=== PATIENT | female | born 1970 | race African-American/Black ===

== ENCOUNTER 2018-08-03 16:44 | Emergency (ER) | payer MEDICAID ==
[~2018-08-03] VITALS: Ht 165.1 cm; Wt 120.0 kg
[~2018-08-03 16:44] MED LIST: SULF1TAB48 MT
[2018-08-03 18:21] LABS: BASOPHILS % 0.6 % (0.0-2.0); EOSINOPHILS % 0.8 % (0.0-5.0); HEMATOCRIT. 38.1 % (36.0-48.0); HEMOGLOBIN. 12.8 g/dL (12.0-16.0); LYMPHOCYTES % 16.5 % (20.0-50.0); MEAN CORPUSCULAR HEMOGLOBIN 28.9 pg (28.0-32.0); MEAN PLATELET VOLUME 8.2 fl (7.4-10.4); MONOCYTES % 7.2 % (2.0-8.0); NEUTROPHILS % 74.9 % (40.0-76.0); PLATELET 360 x1000/uL (130-400); RED BLOOD CELL COUNT 4.43 mill/uL (4.2-5.4); RED CELL DISTRIBUTION WIDTH 14.4 % (11.6-14.6)
[2018-08-03 18:23] LABS: CHLORIDE 105 mEq/L (98-107)
[2018-08-03] MEDS ORDERED: MORPHINE SULFATE 4 MG/ML CPJ (NOT FOR IM USE) IV ONE (19:30)
[2018-08-03 21:36] VITALS: BP 129/95
== END 2018-08-03 21:37 | disposition home or self-care (01) ==
LOC: ER 16:44
DX: M54.89 Other dorsalgia (principal); R51 Headache; M54.2 Cervicalgia; F41.9 Anxiety disorder, unspecified; Z90.49 Acquired absence of other specified parts of digestive tract; Z79.899 Other long term (current) drug therapy
CPT/HCPCS: 36415; 70450; 71045; 80053; 85025; 96374; 99284; J2270; Z7610

== ENCOUNTER 2020-04-23 18:49 | Emergency (ER) | payer MEDICAID ==
[~2020-04-23] VITALS: Ht 165.1 cm; Wt 113.0 kg
[2020-04-23] MEDS ORDERED: ACETAMINOPHEN 325MG TABLET PO ONE (19:15)
[2020-04-23] MEDS ORDERED: AMOX-424 MT (19:49)
[2020-04-23] MEDS ORDERED: AMOXICILLIN/POTASSIUM CLAVULANATE 875/125MG TAB PO ONE (20:00)
[2020-04-23 20:38] VITALS: BP 140/78
== END 2020-04-23 21:00 | disposition home or self-care (01) ==
LOC: ER 18:49
DX: H66.91 Otitis media, unspecified, right ear (principal); R03.0 Elevated blood-pressure reading, without diagnosis of hypertension; E66.9 Obesity, unspecified; Z68.41 Body mass index [BMI] 40.0-44.9, adult
CPT/HCPCS: 99283

== ENCOUNTER 2021-02-22 23:18 | Emergency (ER) | payer MEDICAID ==
[~2021-02-22] VITALS: Ht 165.1 cm; Wt 123.0 kg
[~2021-02-22 23:18] MED LIST changes: +AMOX-424 MT
[2021-02-23] MEDS ORDERED: KETOROLAC 60MG/2ML VIAL IM ONE (01:30)
[2021-02-23 01:57] LABS: BASOPHILS % 0.9 % (0.0-2.0); HEMATOCRIT. 42.8 % (36.0-48.0); HEMOGLOBIN. 14.1 g/dL (12.0-16.0); LYMPHOCYTES % 19.7 % (20.0-50.0); MEAN CORPUSCULAR HEMOGLOBIN 29.3 pg (28.0-32.0); MEAN PLATELET VOLUME 8.5 fl (7.4-10.4); MONOCYTES % 7.5 % (2.0-8.0); NEUTROPHILS % 70.9 % (40.0-76.0); PLATELET 302 x1000/uL (130-400); RED BLOOD CELL COUNT 4.81 mill/uL (4.2-5.4); RED CELL DISTRIBUTION WIDTH 13.9 % (11.6-14.6)
[2021-02-23 02:00] LABS: CHLORIDE 107 mEq/L (98-107)
[2021-02-23 03:20] VITALS: BP 130/70
== END 2021-02-23 03:23 | disposition home or self-care (01) ==
LOC: ER 23:18
DX: I77.6 Arteritis, unspecified (principal); Z90.49 Acquired absence of other specified parts of digestive tract
CPT/HCPCS: 36415; 73610; 80048; 85025; 96372; 99284; J1885

== ENCOUNTER 2021-03-12 03:16 | Emergency (ER) | payer MEDICAID ==
[~2021-03-12] VITALS: Ht 162.6 cm; Wt 77.0 kg
[2021-03-12 03:18] VITALS: BP 163/82
[2021-03-12] MEDS ORDERED: METHYLPREDNISOLONE SOD SUCC 125 MG/2 ML VIAL IM SCH (04:30)
[2021-03-12] MEDS ORDERED: KETOROLAC 30MG/ML VIAL IM ONE (04:30)
[2021-03-12 04:39] LABS: BASOPHILS % 0.4 % (0.0-2.0); EOSINOPHILS % 2.1 % (0.0-5.0); HEMATOCRIT. 37.4 % (36.0-48.0); HEMOGLOBIN. 12.6 g/dL (12.0-16.0); LYMPHOCYTES % 19.5 % (20.0-50.0); MEAN CORPUSCULAR HEMOGLOBIN 29.2 pg (28.0-32.0); MEAN CORPUSCULAR VOLUME 86.8 fL (81.0-99.0); MEAN PLATELET VOLUME 7.7 fl (7.4-10.4); MONOCYTES % 7.3 % (2.0-8.0); NEUTROPHILS % 70.7 % (40.0-76.0); PLATELET 321 x1000/uL (130-400); RED BLOOD CELL COUNT 4.31 mill/uL (4.2-5.4); RED CELL DISTRIBUTION WIDTH 13.9 % (11.6-14.6)
[2021-03-12 04:51] LABS: CHLORIDE 108 mEq/L (98-107)
[2021-03-12] MEDS ORDERED: IBUP-2029 MT (05:09)
[2021-03-12] MEDS ORDERED: CEPH500T MT (05:09)
[2021-03-12] MEDS ORDERED: P20 PO (05:09)
== END 2021-03-12 06:18 | disposition home or self-care (01) ==
LOC: ER 03:16
DX: R21 Rash and other nonspecific skin eruption (principal); Z90.49 Acquired absence of other specified parts of digestive tract
CPT/HCPCS: 36415; 80053; 85025; 96372; 99284; J1885; J2930

== ENCOUNTER 2022-02-09 15:48 | Emergency (ER) | payer MEDICAID ==
[~2022-02-09] VITALS: Ht 167.6 cm; Wt 129.5 kg
[~2022-02-09 15:48] MED LIST changes: +CEPH500T MT; +IBUP-2029 MT; +P20 PO
[2022-02-09 16:05] VITALS: BP 172/144
[2022-02-09] MEDS ORDERED: ALBU6.7H3 INH (20:59)
[2022-02-09] MEDS ORDERED: BENZ100C86 MT (20:59)
== END 2022-02-09 21:19 | disposition home or self-care (01) ==
LOC: ER 15:48
DX: R05.9 Cough, unspecified (principal); J06.9 Acute upper respiratory infection, unspecified; F41.9 Anxiety disorder, unspecified; F17.200 Nicotine dependence, unspecified, uncomplicated; Z79.899 Other long term (current) drug therapy; Z90.710 Acquired absence of both cervix and uterus; Z90.49 Acquired absence of other specified parts of digestive tract
CPT/HCPCS: 71045; 93005; 99283

== ENCOUNTER 2025-02-07 12:08 | Inpatient (IN) | payer OTHER ==
[~2025-02-07] VITALS: Ht 167.6 cm; Wt 134.7 kg
[~2025-02-07 12:08] MED LIST changes: +ALBU18HF2 IH; +AMLO10TA80 MT; -AMOX-424 MT; +BUDE6.9H IH; -CEPH500T MT; +FLUT1BLS3 INH; +HYDR100T11 MT; -IBUP-2029 MT; +INSU100I28 SQ; +LIP40 MT; +LISI10TA26 MT; +METF-817 MT; +METO-539 MT; +OMEP20CA14 PO; -P20 PO; -SULF1TAB48 MT
[2025-02-07] MEDS: METHYLPREDNISOLONE SOD SUCC 125MG/2ML (ACT-O-VIAL) IV ONE (12:43)
[2025-02-07 12:47] LABS: BASOPHILS % 0.5 % (0.0-2.0); EOSINOPHILS % 1.8 % (0.0-5.0); HEMATOCRIT. 39.6 % (36.0-48.0); HEMOGLOBIN. 12.8 g/dL (12.0-16.0); LYMPHOCYTES % 22.8 % (20.0-50.0); MEAN PLATELET VOLUME 8.5 fl (7.4-10.4); MONOCYTES % 7.1 % (2.0-8.0); NEUTROPHILS % 67.8 % (40.0-76.0); PLATELET 261 x1000/uL (130-400); RED BLOOD CELL COUNT 4.56 mill/uL (4.2-5.4); RED CELL DISTRIBUTION WIDTH 14.0 % (11.6-14.6)
[2025-02-07 12:55] LABS: CREATININE 0.9 mg/dL (0.6-1.0)
[2025-02-07 12:56] LABS: UREA NITROGEN BLOOD 12 mg/dL (9-23)
[2025-02-07 12:57] LABS: TROPONIN I HIGH SENSITIVITY 23 ng/L (3.0-34)
[2025-02-07 13:10] VITALS: PULSE 96; RESP 22; O2SAT 95
[2025-02-07] MEDS: IPRATROPIUM BROMIDE (0.02%) 0.5MG/2.5ML NEB HHN ONE (13:10)
[2025-02-07] MEDS: ALBUTEROL (0.083%) 2.5MG/3ML NEB HHN ONE (13:10)
[2025-02-07 15:30] VITALS: BP 154/127; PULSE 108; RESP 20; TEMP 36.8072
[2025-02-07 15:30] LABS: TROPONIN I HIGH SENSITIVITY 17 ng/L (3.0-34)
[2025-02-07 16:00] VITALS: BP 154/107; PULSE 108; RESP 20; TEMP 36.8; O2SAT 94
[2025-02-07] MEDS ORDERED: ONDANSETRON HCL 4MG/2ML INJ IV PRN (18:00)
[2025-02-07] MEDS ORDERED: DEXTROSE 50% WATER 50ML SYRINGE IV PRN (18:00)
[2025-02-07 20:00] VITALS: BP_SYST 137; BP_SYST 138; BP_DIAS 68; BP_DIAS 96; PULSE 122; RESP 18; TEMP 36.6; O2SAT 97
[2025-02-07] MEDS ORDERED: NALOXONE HCL 0.4MG/ML VIAL IV PRN (20:45)
[2025-02-07] MEDS: HYDROCODONE/ACETAMINOPHEN 10/325MG TABLET PO PRN (20:53)
[2025-02-07] MEDS: INSULIN LISPRO 100 UNITS/ML SUBCUT SCH (20:53)
[2025-02-07] MEDS: BLOOD SUGAR DIAGNOSTIC STRIP TEST SCH (20:54)
[2025-02-07 21:07] VITALS: PULSE 88; RESP 20
[2025-02-07] MEDS: IPRATROPIUM/ALBUTEROL 0.5-3(2.5)MG/3ML NEB HHN SCH (21:07)
[2025-02-08] VITALS (11 sets, daily range): BP systolic 100–166; BP diastolic 56–91; PULSE 68–122; RESP 18–22; TEMP 36.5–37.2; O2SAT 90–97
[2025-02-08] MEDS: ACETAMINOPHEN 325MG TABLET PO PRN (02:42)
[2025-02-08 07:25] LABS: CREATININE 0.8 mg/dL (0.6-1.0)
[2025-02-08 07:27] LABS: UREA NITROGEN BLOOD 14 mg/dL (9-23)
[2025-02-08 07:30] LABS: BASOPHILS % 0.1 % (0.0-2.0); EOSINOPHILS % 0.0 % (0.0-5.0); HEMATOCRIT. 37.7 % (36.0-48.0); HEMOGLOBIN. 12.2 g/dL (12.0-16.0); LYMPHOCYTES % 13.0 % (20.0-50.0); MEAN PLATELET VOLUME 9.0 fl (7.4-10.4); MONOCYTES % 7.4 % (2.0-8.0); NEUTROPHILS % 79.5 % (40.0-76.0); PLATELET 268 x1000/uL (130-400); RED BLOOD CELL COUNT 4.33 mill/uL (4.2-5.4); RED CELL DISTRIBUTION WIDTH 13.9 % (11.6-14.6)
[2025-02-08] MEDS: PANTOPRAZOLE SODIUM 40 MG/VIAL IV SCH (10:16)
[2025-02-08] MEDS: PREDNISONE 20MG TABLET PO SCH (11:34)
[2025-02-08] MEDS: INSULIN GLARGINE 100 UNITS/ML SUBCUT SCH ×2 (11:40→21:13)
[2025-02-08] MEDS: BLOOD SUGAR DIAGNOSTIC STRIP TEST SCH (12:20)
[2025-02-08] MEDS: INSULIN LISPRO 100 UNITS/ML SUBCUT SCH (12:44)
[2025-02-08] MEDS: ACETYLCYSTEINE 200MG/ML 20% VIAL 4ML INH SCH (16:17)
[2025-02-09] VITALS (9 sets, daily range): BP systolic 116–148; BP diastolic 76–95; PULSE 78–111; RESP 16–20; TEMP 36.3–36.5; O2SAT 95–100
[2025-02-09 13:22] LABS: BG BASE EXCESS 3.1 mmol/L (-2.0-3.0); BG CARBOXYHEMOGLOBIN 1.2 % (0.5-1.5); BG DEOXYHEMOGLOBIN 4.7 % (0.0-5.0); BG FRACTION INSPIRED OXYGEN 21; BG HCO3 ACT 29.0 mmol/L (21.0-28.0); BG METHEMOGLOBIN 0.0 % (0.5-1.5); BG OXYGEN SATURATION 95.2 % (94.0-98.0); BG OXYHEMOGLOBIN 94.1 % (94.0-98.0); BG PCO2 49.4 mmHg (32.0-45.0); BG PH 7.386 (7.350-7.450); BG PO2 74.3 mmHg (83.0-108.0); BG SAMPLE SITE RIGHT RADIAL; BG TOTAL HEMOGLOBIN 13.3 g/dL (12.0-16.0); BG VENT MODE ROOM AIR
[2025-02-09] MEDS ORDERED: ALBU18HF2 IH (16:58)
[2025-02-09] MEDS ORDERED: P20 MT (16:58)
== END 2025-02-09 18:27 | disposition home or self-care (01) | DRG 140 ==
LOC: ER 12:08 → 5WST 14:12 → EDBEDREQTM 14:16 → EDBEDREQ 14:16
PROVIDERS: ADMIT Internal Medicine; ATTEND Internal Medicine
DX: J44.1 Chronic obstructive pulmonary disease with (acute) exacerbation (principal); J96.01 Acute respiratory failure with hypoxia; E11.65 Type 2 diabetes mellitus with hyperglycemia; I10 Essential (primary) hypertension; G43.909 Migraine, unspecified, not intractable, without status migrainosus; J98.11 Atelectasis; Z79.899 Other long term (current) drug therapy; Z79.4 Long term (current) use of insulin; Z79.84 Long term (current) use of oral hypoglycemic drugs
CPT/HCPCS: 36415; 36600; 71045; 80048; 82375; 82805; 82962; 83036; 83735; 83880; 84484; 85025; 85379; 93005; 93970; 94070; 94640; 96375; 99285; J1815; J2470; J2919; J7512; J7608

== ENCOUNTER 2025-02-14 04:43 | Inpatient (IN) | payer OTHER ==
[~2025-02-14] VITALS: Ht 167.6 cm; Wt 133.8 kg
[~2025-02-14 04:43] MED LIST changes: +P20 MT
[2025-02-14] MEDS: METHYLPREDNISOLONE SOD SUCC 125MG/2ML (ACT-O-VIAL) IV NR (05:30)
[2025-02-14] MEDS: ALBUTEROL (0.083%) 2.5MG/3ML NEB HHN NR (05:49)
[2025-02-14] MEDS: IPRATROPIUM BROMIDE (0.02%) 0.5MG/2.5ML NEB HHN NR (05:49)
[2025-02-14 05:50] LABS: CREATININE 1.0 mg/dL (0.6-1.0); TROPONIN I HIGH SENSITIVITY 17 ng/L (3.0-34); UREA NITROGEN BLOOD 15 mg/dL (9-23)
[2025-02-14 05:51] LABS: PROTEIN TOTAL 6.9 g/dL (6.0-8.3)
[2025-02-14 05:52] VITALS: PULSE 97; RESP 28; O2SAT 99
[2025-02-14 05:52] LABS: ASPARTATE AMINOTRANSFERASE 23 IU/L (<34); BILIRUBIN DIRECT < 0.1 mg/dL (<=3.0); BILIRUBIN TOTAL 0.2 mg/dL (0.1-1.0); ETHANOL BLOOD < 10 mg/dL (<10)
[2025-02-14 06:25] LABS: BASOPHILS % 0.4 % (0.0-2.0); EOSINOPHILS % 1.9 % (0.0-5.0); HEMATOCRIT. 38.6 % (36.0-48.0); HEMOGLOBIN. 12.6 g/dL (12.0-16.0); LYMPHOCYTES % 19.9 % (20.0-50.0); MEAN PLATELET VOLUME 9.3 fl (7.4-10.4); MONOCYTES % 7.4 % (2.0-8.0); NEUTROPHILS % 70.4 % (40.0-76.0); PLATELET 245 x1000/uL (130-400); RED BLOOD CELL COUNT 4.44 mill/uL (4.2-5.4); RED CELL DISTRIBUTION WIDTH 14.2 % (11.6-14.6)
[2025-02-14 06:33] LABS: INR 0.9
[2025-02-14 07:20] LABS: INFLUENZA TYPE A Presumptive Negative (Pres. Neg.)
[2025-02-14 07:21] LABS: INFLUENZA TYPE B Presumptive Negative (Pres. Neg.); RESPIRATORY SYNCYTIAL VIRUS Not Detected (Not Detectd)
[2025-02-14] MEDS ORDERED: DEXTROSE 50% WATER 50ML SYRINGE IV PRN (15:00)
[2025-02-14] MEDS ORDERED: ONDANSETRON HCL 4MG/2ML INJ IV PRN (15:00)
[2025-02-14] MEDS: AMLODIPINE 10MG TABLET PO SCH (16:00)
[2025-02-14 16:48] VITALS: BP 142/80; PULSE 85; RESP 20; TEMP 36.4736
[2025-02-14] MEDS: BLOOD SUGAR DIAGNOSTIC STRIP TEST SCH (17:10)
[2025-02-14] MEDS: INSULIN LISPRO 100 UNITS/ML SUBCUT SCH (17:40)
[2025-02-14 20:00] VITALS: BP 132/89; PULSE 109; RESP 18; TEMP 36.9; O2SAT 96
[2025-02-14] MEDS: ACETAMINOPHEN 325MG TABLET PO PRN (23:00)
[2025-02-15] VITALS (10 sets, daily range): BP systolic 135–150; BP diastolic 92–100; PULSE 74–111; RESP 18–24; TEMP 36.6–36.9; O2SAT 96–100
[2025-02-15] MEDS: IPRATROPIUM/ALBUTEROL 0.5-3(2.5)MG/3ML NEB HHN SCH (01:12)
[2025-02-15] MEDS: GUAIFENESIN-DM 200MG-20MG/10ML UDC PO PRN (04:22)
[2025-02-15] MEDS: INSULIN GLARGINE 100 UNITS/ML SUBCUT SCH ×2 (13:02→21:35)
[2025-02-15] MEDS: KETOROLAC 30MG/ML VIAL IV PRN (13:05)
[2025-02-16] VITALS (8 sets, daily range): BP systolic 122–149; BP diastolic 80–103; PULSE 86–114; RESP 18–20; TEMP 36.1–36.7; O2SAT 95–100
[2025-02-17] VITALS (9 sets, daily range): BP systolic 124–162; BP diastolic 91–111; PULSE 84–127; RESP 17–19; TEMP 36.1–36.7; O2SAT 95–98
[2025-02-17 08:37] LABS: BASOPHILS % 0.3 % (0.0-2.0); EOSINOPHILS % 2.0 % (0.0-5.0); HEMATOCRIT. 40.6 % (36.0-48.0); HEMOGLOBIN. 13.1 g/dL (12.0-16.0); LYMPHOCYTES % 26.0 % (20.0-50.0); MEAN PLATELET VOLUME 9.2 fl (7.4-10.4); MONOCYTES % 7.7 % (2.0-8.0); NEUTROPHILS % 64.0 % (40.0-76.0); PLATELET 254 x1000/uL (130-400); RED BLOOD CELL COUNT 4.70 mill/uL (4.2-5.4); RED CELL DISTRIBUTION WIDTH 14.0 % (11.6-14.6)
[2025-02-17 08:46] LABS: CREATININE 1.0 mg/dL (0.6-1.0); UREA NITROGEN BLOOD 12.0 mg/dL (9-23)
[2025-02-17 15:04] LABS: BG BASE EXCESS 3.4 mmol/L (-2.0-3.0); BG CARBOXYHEMOGLOBIN 0.8 % (0.5-1.5); BG DEOXYHEMOGLOBIN 5.5 % (0.0-5.0); BG FRACTION INSPIRED OXYGEN 21; BG HCO3 ACT 28.3 mmol/L (21.0-28.0); BG METHEMOGLOBIN 0.3 % (0.5-1.5); BG OXYGEN SATURATION 94.4 % (94.0-98.0); BG OXYHEMOGLOBIN 93.4 % (94.0-98.0); BG PCO2 43.8 mmHg (32.0-45.0); BG PH 7.428 (7.350-7.450); BG PO2 67.0 mmHg (83.0-108.0); BG SAMPLE SITE LEFT RADIAL; BG TOTAL HEMOGLOBIN 14.7 g/dL (12.0-16.0); BG VENT MODE ROOM AIR
== END 2025-02-17 19:23 | disposition home or self-care (01) | DRG 140 ==
LOC: ER 04:55 → 8WST 09:20 → EDBEDREQTM 09:23 → EDBEDREQ 09:23
PROVIDERS: ADMIT Internal Medicine; ATTEND Internal Medicine
DX: J44.1 Chronic obstructive pulmonary disease with (acute) exacerbation (principal); J96.01 Acute respiratory failure with hypoxia; E66.01 Morbid (severe) obesity due to excess calories; I10 Essential (primary) hypertension; E11.9 Type 2 diabetes mellitus without complications; Z68.42 Body mass index [BMI] 45.0-49.9, adult; Z87.891 Personal history of nicotine dependence; Z79.51 Long term (current) use of inhaled steroids; Z79.899 Other long term (current) drug therapy; Z79.4 Long term (current) use of insulin
CPT/HCPCS: 36415; 36600; 71045; 80048; 80076; 80320; 82375; 82805; 82962; 84484; 85025; 87420; 87426; 87804; 93005; 93970; 94070; 94640; 94664; 96374; 99285; A4606; J1815; J1885; J2919; G0480